=== PATIENT | male | born 1985 | race Caucasian/White ===

== ENCOUNTER 2019-09-24 18:22 | Emergency (ER) | payer BC ==
[2019-09-24] MEDS ORDERED: Sodium Chloride 0.9% 1,000 ML IV ONE (18:43)
[2019-09-24] MEDS ORDERED: Ibuprofen 800 MG Tab PO ONE (18:44)
[2019-09-24] MEDS ORDERED: Albuterol/Ipratropium 3.0-0.5 MG/3 ML Neb Soln NEB ONE (18:44)
--- NOTE | 2019-09-24 18:46 | EDM.PDOC ---
ED HPI GENERAL MEDICAL PROBLEM - General Chief Complaint: ENT Problem Stated Complaint: CHEST COLD Time Seen by Provider: 09/24/19 18:36 Source of Information: Reports: Patient History Limitations: Reports: No Limitations - History of Present Illness INITIAL COMMENTS - FREE TEXT/NARRATIVE: HISTORY AND PHYSICAL: History of present illness: Patient is a 34-year-old male who presents to the ED today with concern of generalized body aches, fever, and cough 3 days. Patient states he does smoke about a pack of cigarettes a day and has so for 15-20 years. Patient states he does take Suboxone daily but denies any other alcohol or substance use. Patient states he's taken Mucinex for his symptoms without relief. Patient denies any health history or any other symptoms or concerns. Patient denies chest pain, shortness of breath. Denies headache, neck stiff ness , change in vision, syncope, or near syncope. Denies nausea, vomiting, abdominal pain, diarrhea, constipation, or dysuria. Has not noted any blood in urine or stool. Patient has been eating and drinking appropriately. Review of systems: As per history of present illness and below otherwise all systems reviewed and negative. Past medical history: As per history of present illness and as reviewed below otherwise noncontributory. Surgical history: As per history of present illness and as reviewed below otherwise noncontributory. Social history: See social history for further information Family history: As per history of present illness and as reviewed below otherwise noncontributory. Physical exam: General: Patient is alert, oriented, and in no acute distress. Patient sitting comfortably on exam table. HEENT: Atraumatic, normocephalic, pupils equal and reactive bilaterally, negative for conjunctival pallor or scleral icterus, mucous membranes moist, TMs normal bilaterally, throat clear, neck supple, nontender, trachea midline. No drooling or trismus noted. No meningeal signs. No hot potato voice noted. Lungs: Diminished, otherwise clear to auscultation, breath sounds equal bilaterally, chest nontender. Dry cough on exam. Heart: S1S2, regular rate and rhythm without overt murmur Abdomen: Soft, nondistended, nontender. Negative for masses or hepatosplenomegaly. Negative for costovertebral tenderness. Pelvis: Stable nontender. Genitourinary: Deferred. Rectal: Deferred. Skin: Intact, warm, dry. No lesions or rashes noted. Extremities: Atraumatic, negative for cords or calf pain. Neurovascular unremarkable. Neuro: Awake, alert, oriented. Cranial nerves II through XII unremarkable. Cerebellum unremarkable. Motor and sensory unremarkable throughout. Exam nonfocal. Notes: Discussed the importance for follow-up with a primary care provider. Voices understanding and is agreeable to plan of care. Denies any further questions or concerns at this time. Diagnostics: CBC, CMP, UA, EKG, chest x-ray, influenza, strep, blood cultures x 2, lactate Therapeutics: DuoNeb, saline, Rocephin Prescription: Azithromycin, Proair inhaler Impression: Right lower lobe bronchopneumonia Plan: 1. Take medication as prescribed. You can alternate ibuprofen and Tylenol as directed for pain and discomfort. 2. Follow-up with your primary care provider as discussed. Return to the ED as needed and as discussed. Definitive disposition and diagnosis as appropriate pending reevaluation and review of above. Generalized Pain Score (Numeric/FACES): 10 - Related Data Allergies Allergy/AdvReac Type Severity Reaction Status Date / Time No Known Allergies Allergy Verified 09/24/19 18:34 Home Meds: Home Meds Buprenorphine HCl/Naloxone HCl [Suboxone 12 mg-3 mg Sl Film] 1 each SL ASDIRECTED 09/24/19 [History] Past Medical History - Past Health History Medical/Surgical History: Denies Medical/Surgical History Social & Family History - Family History Family Medical History: Noncontributory - Tobacco Use Smoking Status *Q: Current Every Day Smoker Years of Tobacco use: 15 Packs/Tins Daily: 0.5 - Caffeine Use Caffeine Use: Reports: Coffee - Recreational Drug Use Recreational Drug Use: No ED ROS GENERAL - Review of Systems Review Of Systems: ROS reveals no pertinent complaints other than HPI. ED EXAM, GENERAL - Physical Exam Exam: See Below (See dictation) Course - Vital Signs Last Recorded V/S: Last Vital Signs Temp 100.4 F 09/24/19 20:05 Pulse 79 09/24/19 20:05 Resp 16 09/24/19 20:05 BP 103/73 09/24/19 18:35 Pulse Ox 94 L 09/24/19 20:05 - Orders/Labs/Meds Orders: Active Orders 24 hr Category Date Time Status EKG Documentation Completion [RC] STAT Care 09/24/19 18:43 Active RT Aerosol Therapy [RC] ASDIRECTED Care 09/24/19 18:44 Active CULTURE BLOOD [BC] Stat Lab 09/24/19 19:47 Results CULTURE BLOOD [BC] Stat Lab 09/24/19 20:00 Received CULTURE STREP A CONFIRMATION [RM] Stat Lab 09/24/19 18:39 Results STREP SCRN A RAPID W CULT CONF [RM] Stat Lab 09/24/19 18:39 Results UA RFX FAREED AND CULT IF INDIC [URIN] Stat Lab 09/24/19 18:43 Ordered Blood Culture x2 Reflex Set [OM.PC] Stat Oth 09/24/19 19:39 Ordered Labs: Laboratory Tests 09/24/19 09/24/19 09/24/19 Range/Units 19:10 19:10 20:00 WBC 9.17 (4.0-11.0) K/uL RBC 5.32 (4.50-5.90) M/uL Hgb 13.9 (13.0-17.0) g/dL Hct 41.7 (38.0-50.0) % MCV 78.4 L (80.0-98.0) fL MCH 26.1 L (27.0-32.0) pg MCHC 33.3 (31.0-37.0) g/dL RDW Std Deviation 41.3 (28.0-62.0) fl RDW Coeff of [place] 15 (11.0-15.0) % Plt Count 190 (150-400) K/uL MPV 9.00 (7.40-12.00) fL Neut % (Auto) 65.5 (48.0-80.0) % Lymph % (Auto) 20.1 (16.0-40.0) % [place] % (Auto) 13.1 (0.0-15.0) % Eos % (Auto) 0.9 (0.0-7.0) % Baso % (Auto) 0.4 (0.0-1.5) % Neut # (Auto) 6.0 H (1.4-5.7) K/uL Lymph # (Auto) 1.8 (0.6-2.4) K/uL [place] # (Auto) 1.2 H (0.0-0.8) K/uL Eos # (Auto) 0.1 (0.0-0.7) K/uL Baso # (Auto) 0.0 (0.0-0.1) K/uL Nucleated RBC % 0.0 /100WBC Nucleated RBCs # 0 K/uL Lactate 1.0 (0.20-2.00) mmol/L Sodium 137 (136-148) mmol/L Potassium 4.0 (3.5-5.1) mmol/L Chloride 99 (98-107) mmol/L Carbon Dioxide 29.7 (21.0-32.0) mmol/L BUN 9 (7.0-18.0) mg/dL Creatinine 1.1 (0.8-1.3) mg/dL Est Cr Clr Drug Dosing 96.22 mL/min Estimated GFR (MDRD) > 60.0 ml/min Glucose 100 (74-106) mg/dL Calcium 9.1 (8.5-10.1) mg/dL Total Bilirubin 0.6 (0.2-1.0) mg/dL AST 32 (15-37) IU/L ALT 75 H (14-63) IU/L Alkaline Phosphatase 63 (46-116) U/L Total Protein 7.7 (6.4-8.2) g/dL Albumin 3.5 (3.4-5.0) g/dL Globulin 4.2 H (2.6-4.0) g/dL Albumin/Globulin Ratio 0.8 L (0.9-1.6) Meds: Medications Discontinued Medications Generic Name Dose Route Start Last Admin Trade Name Freq PRN Reason Stop Dose Admin Albuterol/Ipratropium 3 ml 09/24/19 18:44 09/24/19 18:59 Duoneb 3.0-0.5 Mg/3 Ml NEB 09/24/19 18:45 3 ml ONETIME ONE Administration Sodium Chloride 1,000 mls @ 999 mls/hr 09/24/19 18:43 09/24/19 18:59 Normal Saline IV 09/24/19 19:43 999 mls/hr BOLUS ONE Administration Ceftriaxone Sodium/Dextrose 1 50 mls @ 100 mls/hr 09/24/19 19:25 09/24/19 20: 02 gm/ Premix IV 09/24/19 19:54 100 mls/hr ONETIME ONE Administration Ibuprofen 800 mg 09/24/19 18:44 09/24/19 18:59 Motrin PO 09/24/19 18:45 800 mg ONETIME ONE Administration Departure - Departure Time of Disposition: 19:56 Disposition: Home, Self-Care 01 Clinical Impression: Right lower lobe pneumonia Qualifiers: Pneumonia type: due to unspecified organism Qualified Code(s): J18.1 - Lobar pneumonia, unspecified organism - Discharge Information Referrals: PCP,None [Primary Care Provider] - Forms: ED Department Discharge Additional Instructions: The following information is given to patients seen in the emergency department who are being discharged to home. This information is to outline your options for follow-up care. We provide all patients seen in our emergency department with a follow-up referral. The need for follow-up, as well as the timing and circumstances, are variable depending upon the specifics of your emergency department visit. If you don't have a primary care physician on staff, we will provide you with a referral. We always advise you to contact your personal physician following an emergency department visit to inform them of the circumstance of the visit and for follow-up with them and/or the need for any referrals to a consulting specialist. The emergency department will also refer you to a specialist when appropriate. This referral assures that you have the opportunity for follow-up care with a specialist. All of these measure are taken in an effort to provide you with optimal care, which includes your follow-up. Under all circumstances we always encourage you to contact your private physician who remains a resource for coordinating your care. When calling for follow-up care, please make the office aware that this follow-up is from your recent emergency room visit. If for any reason you are refused follow-up, please contact the [facility] Emergency Department at and asked to speak to the emergency department charge nurse. [facility] [address] [place] [id number] [id number] 1. Take medication as prescribed. You can alternate ibuprofen and Tylenol as directed for pain and discomfort. 2. Follow-up with your primary care provider as discussed. Return to the ED as needed and as discussed. - My Orders Last 24 Hours: My Active Orders 09/24/19 18:39 CULTURE STREP A CONFIRMATION [RM] Stat STREP SCRN A RAPID W CULT CONF [RM] Stat 09/24/19 18:43 EKG Documentation Completion [RC] STAT UA RFX FAREED AND CULT IF INDIC [URIN] Stat 09/24/19 18:44 RT Aerosol Therapy [RC] ASDIRECTED 09/24/19 19:39 Blood Culture x2 Reflex Set [OM.PC] Stat 09/24/19 19:47 CULTURE BLOOD [BC] Stat 09/24/19 20:00 CULTURE BLOOD [BC] Stat - Assessment/Plan Last 24 Hours: My Active Orders 09/24/19 18:39 CULTURE STREP A CONFIRMATION [RM] Stat STREP SCRN A RAPID W CULT CONF [RM] Stat 09/24/19 18:43 EKG Documentation Completion [RC] STAT UA RFX FAREED AND CULT IF INDIC [URIN] Stat 09/24/19 18:44 RT Aerosol Therapy [RC] ASDIRECTED 09/24/19 19:39 Blood Culture x2 Reflex Set [OM.PC] Stat 09/24/19 19:47 CULTURE BLOOD [BC] Stat 09/24/19 20:00 CULTURE BLOOD [BC] Stat
--- NOTE | 2019-09-24 19:23 | CR ---
INDICATION: Cough, fever for 3 days TECHNIQUE: Chest radiograph 2 views COMPARISON: None FINDINGS: Mediastinum: The mediastinum is normal in appearance. The heart silhouette is normal in size and morphology. Lung: Reticulonodular infiltrates are present within the right lower lobe, likely due to bronchopneumonia. No sign of pleural effusion seen. No pneumothorax is identified. Bone and Soft tissue: Unremarkable for age. IMPRESSION: 1. Reticulonodular infiltrates are present within the right lower lobe, likely due to bronchopneumonia. Dictated by Ricardo Gan MD @ 09/24/2019 7:21:09 PM Dictated by: Ricardo Gan MD @ 09/24/2019 19:21:13 (Electronically Signed)
[2019-09-24] MEDS ORDERED: cefTRIAXone 1 GM in Premix Bag 1 BAG IV ONE (19:25)
[2019-09-24 19:39] LABS: BLOOD UREA NITROGEN,BUN 9 mg/dL (7.0-18.0); CARBON DIOXIDE,CO2 29.7 mmol/L (21.0-32.0); CHLORIDE,CL 99 mmol/L (98-107); GLUCOSE RANDOM 100 mg/dL (74-106); SODIUM,NA 137 mmol/L (136-148)
== END 2019-09-24 20:39 | disposition home or self-care (01) ==
LOC: MW.ED 18:22
DX: J18.0 Bronchopneumonia, unspecified organism (principal); F17.210 Nicotine dependence, cigarettes, uncomplicated
CPT/HCPCS: 71046; 80053; 83605; 85025; 87040; 87081; 87804; 87880; 93005; 96361; 96365; 99284; A9270; J0696; J7040; J7620-GY